=== PATIENT | female | born 1965 | race Caucasian/White ===

== ENCOUNTER 2017-10-18 06:45 | Day surgery (SDC) | payer MEDICARE, OTHER ==
[~2017-10-18] VITALS: Ht 165.1 cm; Wt 63.5 kg
[~2017-10-18 06:45] MED LIST: ASPIRIN325 MG PO; BIOTIN2500 MCG PO; CRANBERRY250 MG PO; FLAX OIL1000 MG PO; GARLIC1000 MG PO; IBUPROFEN200 M1 PO; LIPITOR20 MG PO; MAGNESIUM200 MG PO; MELATIN3 MG PO; POTASSIUM99 M1 PO; VIACTIV SOFT C1 EACH PO; VITAMIN C500 M1 PO
[2017-10-18] MEDS ORDERED: BAYER BACK & B1 EACH PO (07:11)
[2017-10-18] MEDS ORDERED: HYDROCODON-ACE1 EA11 PO (09:57)
--- NOTE | 2017-10-18 10:00 | NUR ---
10/18/17 Idania Crenshaw 0954 PT ARRIVED TO PACU RESP EVEN AND UNLABORED. 0959 PT O2 REMOVED. PT DENIES NAUSEA AND PAIN.
[2017-10-18] MEDS ORDERED: NORCO 7.5-3251 EACH PO (10:20)
--- NOTE | 2017-10-18 10:48 | NUR ---
PT ARRIVES TO DS RM 10 FROM PACU AWKAE AND ALERT. PT DENIES ANY PAIN, STATING RIGHT LEG IS "COMPLETELY NUMB." PT DENIES N/V AND TOLERATES PO WELL. ICED WATER AND JELLO PROVIDED. SCD ON LEFT LEG. BOOT IN PLACE WITH ICE, RIGHT LEG ELEVATED. SPOUSE IN ROOM AT BEDSIDE. CALL LIGHT TO PT LEFT.
--- NOTE | 2017-10-18 11:30 | NUR ---
PT RESTING IN BED WATCHING TV. SPOUSE SLEEPING IN CHAIR AT BEDSIDE. PT DENIES ANY N/V AND ACCEPTS SOUP AND CRACKERS. PT PAIN 0/10 WITH RIGHT LEG STILL NUMB. PT PROVIDED WARM BLANKET. DC CRITERIA EXPLAINED TO PT.
--- NOTE | 2017-10-18 12:14 | NUR ---
DYLON 1150: PT WOULD LIKE TO GET UP ON BEDSIDE COMMODE. SHE IS ABLE TO URINATE QS. SHE INDICATES THAT SHE WOULD LIKE TO GO HOME AT THIS TIME. SHE IS INSTRUCTED ON BEST HOW TO DRESS HERSELF.
--- NOTE | 2017-10-18 12:15 | NUR ---
1200: DC INSTRUCTIONS ARE VERBALLY GIVEN. PT VERBALIZES UNDERSTANDING. SHE IS TAKEN TO VEHICLE IN A WHEELCHAIR. SHE IS ABLE TO TRANSFER HERSELF FROM WHEELCHAIR TO VEHICLE.
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
--- NOTE | 2017-10-19 08:28 | OR ---
[facility] [address] [place], [place] [address] Signed DATE OF OPERATION: 10/18/2017 SURGEON: Fab Cardenas MD PREOPERATIVE DIAGNOSIS: Displaced right 5th metatarsal fracture. POSTOPERATIVE DIAGNOSIS: Displaced right 5th metatarsal fracture. PROCEDURE PERFORMED: Open reduction and internal fixation right 5th metatarsal fracture. RN DOCUMENT IMPROVEMENT: Oliva Lazar PA-C. Oliva was present in critical positioning, retraction, and splint application. ANESTHESIA: General. TOURNIQUET TIME: 32 minutes. IMPLANTS: Eight hole, 2.0 T-plate with screws. BRIEF HISTORY: Long is a 52-year-old female, who suffered a ground-level fall with a long spiral fracture of 5th metatarsal was displaced. Risks and benefits of operative treatment discussed with her and she elected to proceed. DESCRIPTION OF PROCEDURE: Once the consent was obtained, she was taken to the operating room. After adequate anesthesia, she was placed on operating table. All downside pressure points well padded and hip bump was placed. A well-padded proximal leg tourniquet was placed and the leg was prepped and draped in a standard sterile fashion and exsanguinated using Esmarch bandage. Tourniquet inflated to 250 mmHg. Standard dorsal lateral approach was taken through the skin and subcutaneous tissue and directly down on the metatarsal. Periosteum was elevated anteriorly and posteriorly. The fracture was easily identified. Electronically Signed By: FAB CARDENAS MD 10/19/17 0828 PATIENT NAME: LONG ROSAS OPERATIVE REPORT DATE OF : 69 REPORT #: [id number] PHYSICIAN: FAB CARDENAS MD PCP: JAMEL HERNÁNDEZ MD REPORT IS CONFIDENTIAL AND NOT TO BE RELEASED WITHOUT AUTHORIZATION [facility] [address] [place], [place] [address] Signed The fracture was distracted and cleaned of debris. It was then distracted and reduced and held with a clamp. A single 1.25 mm K-wire was then placed across the fracture site holding in position. The clamp was removed. The 2.0 T-plate was then fashioned to set on the condyle distally and cover the entire fracture. Once it was sufficiently bent, it was held in place with a single screw in the center. Image intensifier was brought in, position was adjusted. Remaining screw holes were all drilled and appropriate length screws were placed. Two screws were too long. I removed those and placed shorter screws. The final radiograph showed good reduction and good plate placement of screw lengths. The wound was closed again with antibiotic solution, closed with 3-0 Monocryl and andrew. Wound was dressed with Mepilex Ag dressing, ABD and Lucio wrap. She was placed back in a fracture boot, taken to recovery room in satisfactory condition. All sponge, needle, and instrument counts were correct. Fab Cardenas MD BA/SHAYY /[id number] Copies: ~ Electronically Signed By: FAB CARDENAS MD 10/19/17 0828 PATIENT NAME: LONG ROSAS ANN OPERATIVE REPORT DATE OF : 69 REPORT #: [id number] PHYSICIAN: FAB CARDENAS MD PCP: JAMEL HERNÁNDEZ MD REPORT IS CONFIDENTIAL AND NOT TO BE RELEASED WITHOUT AUTHORIZATION
== END 2017-10-18 12:06 | disposition home or self-care (01) ==
LOC: DS 06:45
PROVIDERS: Specialist
PROC: 0QSN04Z Reposition Right Metatarsal with Internal Fixation Device, Open Approach (ICD-10-PCS; principal; 2017-10-18 08:45)
DX: S92.351A Displaced fracture of fifth metatarsal bone, right foot, initial encounter for closed fracture (principal); Z79.52 Long term (current) use of systemic steroids; Z79.899 Other long term (current) drug therapy; W10.8XXA Fall (on) (from) other stairs and steps, initial encounter
CPT/HCPCS: 01480; 62322; 64445; 73630; 76942; C1713; J0690; J1100; J1885; J2250; J2405; J2704; J2765; J2795; J3010; J7120

== ENCOUNTER 2019-05-27 14:09 | Inpatient (IN) | payer MEDICARE, OTHER ==
[~2019-05-27] VITALS: Ht 165.1 cm; Wt 63.5 kg
[~2019-05-27 14:09] MED LIST changes: +BAYER BACK & B1 EACH PO; +HYDROCODON-ACE1 EA11 PO; +NORCO 7.5-3251 EACH PO
[2019-05-27] MEDS ORDERED: VITAMIN D2400 UNIT PO (14:24)
--- NOTE | 2019-05-27 17:38 | NUR ---
05/27/19 1738 Lashay,Idania 1727 PT ARRIVED TO PACU, PT WAKES EASILY TO VERBAL STIMULI AND DENIES NAUSEA AND PAIN. VSS. PT SHIVERING AND WARM BLACKETS GIVEN. PT FALLS BACK TO SLEEP WITH SNORING NOTED. 1735 PT ARM IN PILLOW CASE SLING PER MD ORDER.
--- NOTE | 2019-05-27 18:26 | NUR ---
ARRIVED TO ROOM 114 WITH JAYY MCINTOSH AT 1815. ALERT AND ORIENTED. AWAKE AND RESPONSIVE. VSS. RIGHT ARM ELEVATED.
--- NOTE | 2019-05-27 19:10 | NUR ---
SHIFT REPORT RECIEVED FROM TYSON MCINTOSH. PT RESTING IN BED WATCHING TV. ICE WATER PROVIDED. ARM ELEVATED WITH ICE PACKS. NO OTHER NEEDS AT THIS TIME. CALL LIGHT IN REACH.
--- NOTE | 2019-05-27 19:30 | NUR ---
VITALS DONE AND CHARTED. PT NEEDS NOTHING AT THIS TIME. BEDSIDE TABLE AND CALL LIGHT IN REACH.
--- NOTE | 2019-05-27 20:36 | NUR ---
ASSESSMENT COMPLETED. SCDs, OLE HOSE AND HEELS ON. BANDAGING CDI. CMS INTACT IN RIGHT HAND. SCHEDULED MEDS PROVIDED. PAIN 5/, PT DENIES NEED FOR ADDITIONAL PAIN MANAGEMENT. PT ORIENTED X4. PT UP TO BR AND BACK TO BED, SBA. NO OTHER NEEDS AT THIS TIME. CALL LIGHT IN REACH.
--- NOTE | 2019-05-27 20:42 | NUR ---
VITALS DONE AND CHARTED. CHICKEN NOODLE SOUP GIVEN PER PT REQUEST. BEDSIDE TABLE AND CALL LIGHT IN REACH.
--- NOTE | 2019-05-27 20:55 | NUR ---
PUT ON TEDS AND HEEL PROTECTORS.
--- NOTE | 2019-05-27 21:49 | NUR ---
VITALS DONE AND CHARTED. PT NEEDS NOTHING AT THIS TIME.
--- NOTE | 2019-05-27 22:16 | NUR ---
PT PAIN 8/10 IN RIGHT HAND/ARM. SCHEDULED PAIN MED AND ICE PACK PROVIDED. CMS INTACT IN RIGHT HAND. NO OTHER NEEDS AT THIS TIME. CALL LIGHT IN REACH.
--- NOTE | 2019-05-27 22:56 | NUR ---
PT STATES PAIN IN ARM/HAND STILL 10/01. PRN PAIN MED PROVIDED. EDUCATION AND ICARE CARD PROVIDED AT REQUEST. NO OTHER NEEDS. CALL LIGHT IN REACH.
--- NOTE | 2019-05-28 00:55 | NUR ---
PT RESTING IN BED, EYES CLOSED. RR EVEN AND UNLABORED. RUE ELEVATED WITH COLD PACK. CALL LIGHT IN REACH.
--- NOTE | 2019-05-28 01:54 | NUR ---
VITALS AND I&OS DONE AND CHARTED. BEDSIDE TABLE AND CALL LIGHT IN REACH. PT NEEDS NOTHING AT THIS TIME.
--- NOTE | 2019-05-28 02:50 | NUR ---
PT RESTING IN BED, EYES CLOSED. RR EVEN, UNLABORED. CALL LIGHT IN REACH.
--- NOTE | 2019-05-28 04:02 | NUR ---
SCHEDULE MED PROVIDED. ASSESSMENT COMPLETED. CMS INTACT IN RUE. PAIN 5/10, ICE PACK PROVIDED. ICE WATER PROVIDED. SCDs, OLE HOSE, HEEL PROTECTORS ON. RUE ELEVATED. PT UP TO BR AND BACK TO BED, SBA. NO OTHER NEEDS AT THIS TIME. CALL LIGHT IN REACH.
--- NOTE | 2019-05-28 06:40 | NUR ---
SCHEDULED MED PROVIDED. PT UP TO BR AND BACK TO BED, SBA. ICE PACK PROVIDED. VS AND I&O COMPLETED BY TISH PAN. NO OTHER NEEDS AT THIS TIME. CALL LIGHT IN REACH.
--- NOTE | 2019-05-28 10:09 | OR ---
[facility] [address], [place] [address] Signed DATE OF OPERATION: 05/27/2019 SURGEON: Fab Cardenas MD PREOPERATIVE DIAGNOSIS: Right hand crush injury. POSTOPERATIVE DIAGNOSIS: Right hand crush injury. PROCEDURE PERFORMED: 1. Irrigation and debridement of skin, subcutaneous tissue, and muscle. Three lacerations, one 2 cm long, one 9 cm long, one 7 cm long. 2. Carpal tunnel release, open. LEAD SOLUTIONS ARCHITECT: None. ANESTHESIA: General. BLOOD LOSS: 150 mL. TOURNIQUET TIME: Zero. BRIEF HISTORY: Long is a 53-year-old female, who was at home with her family and they were splitting firewood using the hydraulic wood splitter. Her hand got caught between the log and the splitter and crushed. She had multiple lacerations with extrusion of muscle along the thumb. She presented to the emergency department, where I evaluated her and found numbness and tingling along the thumb, but no other. By the time she got to the operating room, however, she was complaining of numbness in the entire median distribution with progressive swelling in the volar wrist. I prompted just to go ahead and proceed with a carpal tunnel release as well. The risks, benefits, and alternatives of surgery were discussed with her prior to going to the operating room and she elected to proceed. DESCRIPTION OF PROCEDURE: Electronically Signed By: FAB CARDENAS MD 05/28/19 1009 PATIENT NAME: LONG ROSAS ANN OPERATIVE REPORT DATE OF : 69 REPORT #: [id number] PHYSICIAN: FAB CARDENAS MD PCP: JAMEL HERNÁNDEZ MD REPORT IS CONFIDENTIAL AND NOT TO BE RELEASED WITHOUT AUTHORIZATION [facility] [address] [place], [place] [address] Signed Once consent was obtained, she was taken to the operating room. After adequate anesthesia, she was placed on the operating table. All downside pressure points were well padded. Adequate general anesthesia was then established and the dressing from the ER was then removed. The arm was then prepped and draped in a standard sterile fashion. All 3 wounds were then copiously irrigated using normal saline. The ulnar wound which is 9 cm long was then investigated. There was deep subcutaneous dissection, but the tendons were intact. There were no foreign bodies. The thenar and web space wound on the opposite side was then inspected. There was a large chunk of muscle that was the abductor that was avulsed and extruded out the wound. The wound was again clean and showed no foreign bodies. At this point, we elected to go ahead and do the carpal tunnel release to remove pressure from the median nerve. The carpal tunnel was approached through standard volar approach through a longitudinal incision, carried through skin subcutaneous tissue. The palmaris longus was identified and retracted. There was extensive subcutaneous edema as well as edema in the nerve below the transverse carpal ligament. The transverse carpal ligament was identified and was released to its full extent. The nerve was inspected. There was again extensive edema and some bleeding in the carpal tunnel. This was copiously washed out and packed with a saline soaked sponge as we approached the thenar muscle extrusion. We then made a T-incision off the thenar laceration and extended that into the mid palm obliquely. This was carried through skin and subcutaneous tissue. We were then able to clean off the muscle and reduce it back into its natural position. It was then sutured into position using 3-0 Monocryl as best we could in the soft tissue. Care was taken to avoid the nervous structures, the vascular structures, and the tendinous structures. Once this was accomplished, it was again copiously irrigated. The incision was then closed using 3-0 nylon as was the laceration. This closed relatively easily. The carpal tunnel incision was washed out using dilute iodine and was closed using 3-0 nylon. The lateral incision, however, was too swollen and too tense to close. I placed a couple of stay sutures in the midportion and 2 sutures at each end. It was then packed with a saline soaked sponge after we had irrigated it with both iodine and saline. Once this was completed, we then placed her in a bulky hand dressing using multiple Kerlix and an Lcuio wrap. She was elevated into a sling, taken to recovery room in satisfactory condition. All sponge, needle, and instrument counts were correct. Fab Cardenas MD BA/MODL /[id number] Electronically Signed By: FAB CARDENAS MD 05/28/19 1009 PATIENT NAME: LONG ROSAS OPERATIVE REPORT DATE OF : 69 REPORT #: [id number] PHYSICIAN: FAB CARDENAS MD PCP: JAEML HERNÁNDEZ MD REPORT IS CONFIDENTIAL AND NOT TO BE RELEASED WITHOUT AUTHORIZATION [address] [address] Signed Copies: ~ Electronically Signed By: FAB CARDENAS MD 05/28/19 1009 PATIENT NAME: LONG ROSAS ANN OPERATIVE REPORT DATE OF : 69 REPORT #: [id number] PHYSICIAN: FAB CARDENAS MD PCP: JAMEL HERNÁNDEZ MD REPORT IS CONFIDENTIAL AND NOT TO BE RELEASED WITHOUT AUTHORIZATION
--- NOTE | 2019-05-28 10:20 | NUR ---
Pt in bed at this time, sling in place for elevation to RUE, ice in use as well. Pt recently medicated with Oxycodone for pain. Pt denies needs. Personal supplies and call light within reach.
--- NOTE | 2019-05-28 13:02 | EKG ---
[facility] [address] [facility] [place], [place] [address] Signed Normal sinus rhythm Normal ECG No previous ECGs available Confirmed by ELADIO CAMPBELL DO ([id number]) on 05/28/2019 1:02:10 PM Electronically Signed By: ELADIO CAMPBELL DO 05/28/19 1302 PATIENT NAME: LONG ROSAS ANN Electrocardiogram DATE OF : 69 PHYSICIAN: ELADIO CAMPBELL DO REPORT #: [id number] REPORT IS CONFIDENTIAL AND NOT TO BE RELEASED WITHOUT AUTHORIZATION
--- NOTE | 2019-05-28 14:42 | NUR ---
Pt sitting up in bed at this time, respirations even and non labored. Pt's right arm elevated, cms intact. Pt reports her pain is tolerable. No needs at this time. Personal supplies and call light within reach.
--- NOTE | 2019-05-28 17:33 | NUR ---
Oxycodone 5mg po admin for 5/10 right arm pain.
--- NOTE | 2019-05-28 18:14 | NUR ---
PT CONTINUES TO HAVE RUE ELEVATED WITH ICE. PT DOING WELL. PERSONAL SUPPLIES AND CALL LIGHT WITHIN REACH.
--- NOTE | 2019-05-28 19:38 | NUR ---
Pt sits up in her bed. alert, oriented, involbed in report. Scheduled for th surgery in the morning. Py informed about NPO at modnight. Would like to get snack and pain medication before sleep. Will bw back to assess,
--- NOTE | 2019-05-28 19:42 | NUR ---
pt right arm has a dressing. Elevated on the pillow.
--- NOTE | 2019-05-28 19:42 | NUR ---
SANDWICH BOX PROVIDED TO pt. pt AWAKE, TALKING ON PHONE. NO ADDITIONAL REQUESTS. CALL LIGHT IN REACH.
--- NOTE | 2019-05-28 21:28 | NUR ---
PHONE CALL TO . NO IVF ORDERS PRE OP. NO NEW ORDERS OBTAINED.
--- NOTE | 2019-05-28 21:54 | NUR ---
PT ALERT, ORIENTED, VOIDED AND HAD BM. ASSESSMENT IS DONE. SENSATION INRIGHT ARM IS PRESENT, NO NUMBNESS OR TINGLING, PULSE 1+, CAP REFILL <3 SEC. PT REPORTED PAIN 8/, SEE MAR FOR MEDICATION ADMINISTRATION. PT BACK TO BED, NO NEEDS AT THE MOMENT. CALL LIGHT IN REACH.
--- NOTE | 2019-05-28 22:39 | NUR ---
PT REQUESTED WARM BLANKET. TURNED UP HIT IN THE ROOM. REASSESSED PAIN, PT STATED IT IS 4/10. CALL LIGHT IN REACH. NO NEEDS AT THE MOMENT.
--- NOTE | 2019-05-29 00:14 | NUR ---
pt is awake, stated her pain is 4/10, it is tolerable, denied offered prn pain medication. No needs at the moment.
--- NOTE | 2019-05-29 03:15 | NUR ---
PT WENT TO THE BATHROOM, VOIDED 600 ML WIHTOUT DIFFICULTIES.REPORTED PAIN 8/, SEE MAR FOR MEDCIATIONS ADMINISTRATION. SOME NUBNESS IN THE FINGERS REPORTED. CUPREFILL <3 SEC. USED IS. DONE WITH ASSESSMNET.
--- NOTE | 2019-05-29 04:53 | NUR ---
PT ALERT, ORIENTED, COOPERATIVE. ASKED FOR THE SNACK AT THE BEGINNING OF THE SHIFT, GOOD APPETITE. VOIDED WITHOUT DIFFICULTIES. NPO AFTER MIDNIGHT. PT REPORTED PAIN 8/10 TWICE DURING THIS SHIFT. SEE MAR FOR MEDICATIONS ADMINISTRATIONS. PT HAS UNSTEADY GAIT, CALLS APPROPRIATE FOR HELP. LUNG SOUND DIMINISHED AT THE LOW BASES. PT USED IS. SPO2 96% ON RA. GENERALIZED EDEMA IN AFFECTED HAND. SENSATION IS PRESENT, PULSE 2+, CAP REFILL <3 SEC. VSS.
--- NOTE | 2019-05-29 07:41 | NUR ---
Pt sitting in bed awake, hob elevated. Right arm elevated with ice in use. Pt able to to move fingers freely, sensation intact, cap refill less than three seconds. Fingers to right hand have scant edema noted. Pt recently medicated with dilaudid.
--- NOTE | 2019-05-29 09:08 | NUR ---
PT OFF FLOOR IN SURGERY DEPT AT THIS TIME.
--- NOTE | 2019-05-29 11:39 | NUR ---
05/29/19 1139 Idania Metz 1121 REPORT TO MARLENA MCINTOSH.
--- NOTE | 2019-05-29 11:44 | NUR ---
PT BACK FROM SURGERY. ARRIVED ALERT & ORIENTED X 3. VS STABLE AT THIS TIME. CPOX INTACT, 97% ON RA. JELLO AND WATER PROVIDED. PT TOLERATING WELL. IN BED WITH SCDS, OLE HOSE, AND HEEL PADS IN PLACE. RUE ELEVATED ON PILLOW ABOVE HEART LEVEL, ICE IN PLACE, DRESSING CDI TO RT WRIST AND HAND. CAN FEEL FINGERS BUT CAN'T MOVE AT THIS TIME. CAP REFILL < 3 SEC. FINGERS WARM AND PINK TO TOUCH. RT SHOULDER X RAY COMPLETED. REPORTS 10/10 PAIN IN THE RT HAND. ORDERING LUNCH AT THIS TIME AND FINISHING JELLO.
--- NOTE | 2019-05-29 12:31 | NUR ---
PT SITTING UP IN BED EATING LUNCH. RIGHT ARM ELEVATED ABOVE HEART LEVEL; CMS INTACT. DRESSING CDI. PT TOLERATING ICE WELL OVER INCISION. PT REPORTS IMPROVED PAIN LEVEL TO RIGHT HAND. VS STABLE. PT DENIES NEEDS TO VOID. PERSONAL SUPPLIES AND CALL LIGHT WITHIN REACH.
[2019-05-29] MEDS ORDERED: VIACTIV 650 MG1 EACH PO (13:22)
--- NOTE | 2019-05-29 13:25 | NUR ---
MED REC COMPLETE
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
--- NOTE | 2019-05-29 13:43 | NUR ---
PT DOING WELL AT THIS TIME, A&OX4. PT REPORTS TOLERABLE PAIN IN RUE. DRESSING TO HAND/ARM IS CDI; CAP REFILL LESS THAN THREE SECONDS, PULSE INTACT AND STRONG, PT REPORTS SENSATION TOUCH WITH SLIGHT NUMBNESS TO RIGHT PINKY. PT TOLERATED LUNCH WELL. CPOX INTACT, SAT LEVEL 96% ON RA. RIGHT ARM ELEVATED WITH ICE. NO NEEDS AT THIS TIME. PERSONAL SUPPLIES AND CALL LIGHT WITHIN REACH.
--- NOTE | 2019-05-29 14:32 | NUR ---
PT RESTING IN BED ALMOST ASLEEP. SAO2 96% ON RA. RT ARM ELEVATED ABOVE THE HEART. NO PAIN OR NAUSEA. STATES THE PILL MADE HER COMFORTABLE. CALL LIGHT WITIN REACH. DRESSING CDI, CAN'T MOVE FINGERS BUT CAN FEEL ME TOUCHING THEM.
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
--- NOTE | 2019-05-29 15:32 | NUR ---
RIGHT UPPER ARM ELEVATED ON PILLOW; ICE IN USE. PT DOING WELL, EATING A SNACK. PAIN LEVEL IN RUE IS REPORTED TOLERABLE. DRESSING TO RIGHT HAND IS CDI. CMS INTACT TO RUE. NO NEEDS AT THIS TIME. PT RECENTLY VOIDED. PERSONAL SUPPLIES AND CALL LIGHT WITHIN REACH. NO NEEDS AT THIS TIME.
--- NOTE | 2019-05-29 17:04 | NUR ---
GAVE SCHEDULED TORADOL. PT REPORTING PAIN AT 710. SUPPLIED FRESH ICE BAGS AND PT IS ELEVATING HAND WITH ICE. SAID SHE CAN NOW MOVE HER THUMB BUT NOT HER OTHER FINGERS. UP TO BATHROOM, VOIDED. PT IS NOW BACK IN BED OLE HOSE, SCD'S, AND FOOT PADS IN PLACE. NO FURTHER NEEDS AT THIS TIME. CALL LIGHT IS WITHIN REACH.
--- NOTE | 2019-05-29 18:56 | NUR ---
PATIENT BACK TO SITTING ON EDGE OF BED FROM BATHROOM, SBA. PATIENT COMLAINING OF STOMACH HURTING AND NOT BEING ABLE TO HAVE BOWEL MOVEMENT, RN NOTIFIED. CALL LIGHT IN REACH. NO FURTHER NEEDS AT THIS TIME.
--- NOTE | 2019-05-29 19:20 | NUR ---
received report from morning shift. pt alert, oriented. had small bm, voided without difficulties. pt denied pain at the moment. call light in reach, bed in low postion. scd on.
--- NOTE | 2019-05-29 20:33 | NUR ---
PT ALERT,ORIENTED, REPORTED PAIN 10/10. SEE MAR FOR MEDICATION ADMINISTRATION. IV IS PATENT, DRESSING INTACT, FLUSHED WITH 10 ML OF NS WIHTOUT DIFFICULTIES. PT VOIDED AND HAD LIQUID STOOL. DONE WITH ASSESSEMENT.
--- NOTE | 2019-05-29 22:32 | NUR ---
REASSESS PT FOR PAIN. SHE STATED IT IS 4/10 AND TOLARABLE. WARMED BLANKET WAS OFFERED FOR COMFORT. NO NEEDS AT THE MOMENT.
--- NOTE | 2019-05-30 02:14 | NUR ---
PT CYR TO THE BATHROOM. VOIDED. REPORTED PAIN 10/10 IN HER RIGHT ARM AND SHOULDER. SEE MAR FOR MEDICATION ADMINISTRATION. REFRESHED ICE IN ICEPACKS, FRESH WATER OFFERED. DONE WITH ASSESSMENT, PT CAN MOVE HER FINGERS BESIDE OF PINKY. SENSATION AND PULSE ARE PRESENT. NO NEEDS AT THE MOMENT. WILL BE BACK TO REASSESS FOR PAIN.
--- NOTE | 2019-05-30 03:54 | NUR ---
pt easy wakes up to voice. reported pain 8/10. Scheduled medication was administrated. Able to move her fingers, sensation and pulse is present in affected arm. No needs at the moment. Will be back to reassess for pain. call light in reach.
--- NOTE | 2019-05-30 05:58 | NUR ---
PT EASY WAKES UP TO VOICE. DENIED PAIN AT THE MOMENT, ALERT, COOPERATIVE. NO NEEDS AT THE MOMENT. CALL LIGHT IN REACH,
--- NOTE | 2019-05-30 06:06 | NUR ---
HELPED PT TO THE BATHROOM. VOIDED. DENIED PAIN, VSS. SENSATION PRESENT IN ALL FINGERS. CAP REFILL <3, NO TINGLING, NO NUBNESS AT THE MOMENT. BACK TO BED. NO NEEDS AT THE MOMENT. CALL LIGHT IN REACH.
--- NOTE | 2019-05-30 06:20 | NUR ---
PT HAD LARGE LIQUID BM. VOIDED WITHOUT DIFFICULTIES. GAIT IS MORE STEADY. DENIED DIZZINESS OR LIGHTHEADENESS. REPORTED PAIN 10/10 TWICE DURING THIS SHIFT. SEE MAR FOR MEDICATIONS ADMINISTRATION. IN THE MORNING NO NUMBNESS, NO TINGLING, ABLE TO MOVE ALL FINGERS ON INJURED ARM. SENSATION AND PULSE PRESENT.
--- NOTE | 2019-05-30 07:32 | NUR ---
REPORT RECIEVED FROM ARNALDO GONZALEZ. PT STATES SHE IS FEELING PRETTY GOOD, CAN WIGGLE ALL FINGERS BUT THE PINKY, STILL NUMB.
--- NOTE | 2019-05-30 07:57 | OR ---
[facility] [address] [place], [place] [address] Signed DATE OF OPERATION: 05/29/2019 SURGEON: Fab Cardenas MD PREOPERATIVE DIAGNOSIS: Right hand crush injury. POSTOPERATIVE DIAGNOSIS: Right hand crush injury. PROCEDURE PERFORMED: Irrigation and debridement, delayed primary closure of ulnar wound, 9 cm. LVN LPN: None. ANESTHESIA: General. BLOOD LOSS: Minimal. TOURNIQUET: No tourniquet. BRIEF HISTORY: Long is a 53-year-old female, who had her hand caught in a wood splitter on Wednesday afternoon. She was seen in the emergency room, taken emergently to the operating room, where multiple wounds were debrided and the mid palmar region was decompressed with an open carpal tunnel to relieve her carpal tunnel symptoms. The thenar wound and the carpal tunnel wound were closed; however, we could not get the ulnar wound closed and it was packed open and a bulky hand dressing was applied. She was brought back to the operating room 48 hours later for I and D and possible delayed primary closure. Risks, benefits, and alternatives were discussed with her and she understands and wished to proceed. PROCEDURE IN DETAIL: After consent was obtained, she was taken to the operating room. After adequate anesthesia, she was placed on operating room table. All downside pressure points well padded. The arm was then prepped and draped in a standard sterile fashion and the hand Electronically Signed By: FAB CARDENAS MD 05/30/19 0757 PATIENT NAME: LONG ROSAS OPERATIVE REPORT DATE OF : 69 REPORT #: [id number] PHYSICIAN: FAB CARDENAS MD PCP: JAMEL HERNÁNDEZ MD REPORT IS CONFIDENTIAL AND NOT TO BE RELEASED WITHOUT AUTHORIZATION [address] [address] Signed was inspected. All 3 other wounds that were closed were in good shape. There was a little duskiness to one of the flaps. The ulnar wound was clean and dry. The wound was washed out using dilute Betadine solution followed by normal saline. Once this was accomplished, it was closed using interrupted 3-0 nylon. Minimal skin tension was noted. The hand was then cleansed, placed back into a bulky hand dressing over Xeroform. The patient was taken to recovery room in satisfactory condition. All sponge, needle, and instrument counts were correct. Fab Cardenas MD BA/MODL /[id number] Copies: ~ Electronically Signed By: FAB CARDENAS MD 05/30/19 0757 PATIENT NAME: LONG ROSAS ANN OPERATIVE REPORT DATE OF : 69 REPORT #: [id number] PHYSICIAN: FAB CARDENAS MD PCP: JAMEL HERNÁNDEZ MD REPORT IS CONFIDENTIAL AND NOT TO BE RELEASED WITHOUT AUTHORIZATION
--- NOTE | 2019-05-30 08:16 | NUR ---
SEE MORNING ASSESSMENT. PT COMPLAINING OF STOMACH PAIN AT THIS TIME. GAVE ZOFRAN SHE REPORTS NO RELIEF YET. HELD SENNA AND MIRALAX. UP TO THE RESTROOM AND BACK TO BED. PT TALKING WITH DR. DUARTE NOW. NO FURTHER NEEDS AT THIS TIME. CALL LIGHT WITHIN REACH.
[2019-05-30] MEDS ORDERED: OXYCODONE HCL5 MG PO (08:31)
[2019-05-30] MEDS ORDERED: GABAPENTIN600 MG PO (08:31)
[2019-05-30] MEDS ORDERED: SENNA LAX8.6 MG PO (08:32)
== END 2019-05-30 10:40 | disposition home or self-care (01) | DRG 906 ==
LOC: ED 14:09 → MS 14:10 → ED 14:10 → MS 15:41
PROVIDERS: ADMIT Specialist
PROC: 01N50ZZ Release Median Nerve, Open Approach (ICD-10-PCS; principal; 2019-05-27 15:30)
PROC: 0KQC0ZZ Repair Right Hand Muscle, Open Approach (ICD-10-PCS; 2019-05-27 15:30)
PROC: 0HQFXZZ Repair Right Hand Skin, External Approach (ICD-10-PCS; 2019-05-29)
DX: S67.21XA Crushing injury of right hand, initial encounter (principal); S61.411A Laceration without foreign body of right hand, initial encounter; W31.89XA Contact with other specified machinery, initial encounter; Z87.891 Personal history of nicotine dependence; Z79.899 Other long term (current) drug therapy; Z79.1 Long term (current) use of non-steroidal anti-inflammatories (NSAID); Z88.2 Allergy status to sulfonamides; Z88.6 Allergy status to analgesic agent; Z91.040 Latex allergy status
CPT/HCPCS: 01810; 73030; 73130; 80048; 85025; 90471; 90715; 93005; 93010; 96374; 96375; 99284-25; J0330; J0690; J1170; J1200; J1885; J2001; J2405; J2704; J3010

== ENCOUNTER 2021-07-13 15:42 | Emergency (ER) | payer MEDICARE, OTHER ==
[~2021-07-13] VITALS: Ht 165.1 cm; Wt 63.5 kg
[~2021-07-13 15:42] MED LIST changes: +GABAPENTIN600 MG PO; +OXYCODONE HCL5 MG PO; +SENNA LAX8.6 MG PO; +VIACTIV 650 MG1 EACH PO; +VITAMIN D2400 UNIT PO
[2021-07-13] MEDS ORDERED: HYDROCODON-ACE1 EA10 PO (18:56)
== END 2021-07-13 19:10 | disposition home or self-care (01) ==
LOC: ED 15:42
DX: R07.89 Other chest pain (principal); N93.9 Abnormal uterine and vaginal bleeding, unspecified; Z87.891 Personal history of nicotine dependence; Z88.2 Allergy status to sulfonamides; Z91.040 Latex allergy status; Z88.8 Allergy status to other drugs, medicaments and biological substances; Z79.899 Other long term (current) drug therapy
CPT/HCPCS: 71101; 81001; 99285-25; A9270

== ENCOUNTER 2023-02-09 07:34 | Day surgery (SDC) | payer MEDICARE, OTHER ==
[~2023-02-09] VITALS: Ht 165.1 cm; Wt 71.3 kg
[~2023-02-09 07:34] MED LIST changes: +HYDROCODON-ACE1 EA10 PO
[2023-02-09 07:51] VITALS: BP 118/74
[2023-02-09] MEDS ORDERED: ALEVE220 MG PO (08:01)
[2023-02-09] MEDS ORDERED: OMEPRAZOLE20 MG PO (08:04)
--- NOTE | 2023-02-09 09:00 | NUR ---
02/09/23 0900 Luda Colon PATIENT IS AWAKE AND TALKING WITH ME UPON ARRIVAL TO PACU. SHE FALLS QUICKLY TO RESTING WITH HER EYES CLOSED. SNORING RESPIRATIONS HEARD.
[2023-02-09 09:14] VITALS: BP 119/75
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
--- NOTE | 2023-02-11 17:01 | PATH ---
[facility] [address] [place], [place] [address] Signed SPECIMEN(S): A ANTRUM/PYLORUS BIOPSY SPECIMEN SOURCE: A. ANTRUM/PYLORUS BIOPSY CLINICAL HISTORY: EGD. Family history of stomach cancer. FINAL PATHOLOGIC DIAGNOSIS: Antrum/pylorus biopsy: - Benign gastric type mucosa with focal slight chronic inflammation. - A Helicobacter pylori immunostain is pending and will be reported by addendum. JVR:jennifer MICROSCOPIC EXAMINATION: Histologic sections of all submitted blocks are examined by light microscopy. These findings, together with the gross examination, support the pathologic diagnosis. JVR:dks GROSS DESCRIPTION: The specimen, labeled and designated "Har[place], biopsy, antrum/pylorus biopsy," is received in formalin and consists of two fragments of soft corea tissue that are up to 0.3 cm in greatest dimension. Entirely submitted in (A1). TW (under the direct supervision of a pathologist) The Gross Description was prepared using a voice recognition system. The report was reviewed for accuracy; however, sound-alike word errors, addition and/or deletions may occur. If there is any question about this report, please contact Client Services. ADDITIONAL NOTES: Immunohistochemical and/or in situ hybridization studies were performed on this case with the appropriate positive controls that react as expected. This test was developed and its performance characteristics determined by [facility]. It has not been cleared or approved by the U.S. Food and Drug Administration. The FDA has determined that such clearance or approval is not necessary. This test is used for clinical purposes. It should not be regarded as investigational or for research. [facility] is certified under the PATIENT NAME: LONG ROSAS PATHOLOGY DATE OF : 69 REPORT #: [id number] PHYSICIAN: [facility] PCP: JAMEL HERNÁNDEZ MD REPORT IS CONFIDENTIAL AND NOT TO BE RELEASED WITHOUT AUTHORIZATION [facility] [address] [place], [place] [address], [place] [address] Signed Clinical Laboratory Improvement Amendments of 1988 (CLIA) as qualified to perform high complexity clinical laboratory testing. This assay has not been validated for specimens that have been decalcified. PERFORMING LABORATORY: Technical component was performed by [facility], [address] [place] [address] (CLIA# [id number]). Professional interpretation was performed by [facility], [address] [place] [id number] (CLIA#: [id number]). Diagnostician: Jitendra Leigh MD Pathologist Electronically Signed 02/11/2023 Copies: ~ PATIENT NAME: LONG ROSAS PATHOLOGY DATE OF : 69 REPORT #: [id number] PHYSICIAN: [facility] PCP: JAMEL HERNÁNDEZ MD REPORT IS CONFIDENTIAL AND NOT TO BE RELEASED WITHOUT AUTHORIZATION
== END 2023-02-09 09:25 | disposition home or self-care (01) ==
LOC: OPS 07:34 → DS 07:39 → OPS 09:00 → DS 09:00 → OPS 09:25
PROVIDERS: ATTEND Colon & Rectal Surgery
PROC: 0DB78ZX Excision of Stomach, Pylorus, Via Natural or Artificial Opening Endoscopic, Diagnostic (ICD-10-PCS; principal; 2023-02-09 09:00)
DX: K29.70 Gastritis, unspecified, without bleeding (principal); K44.9 Diaphragmatic hernia without obstruction or gangrene; R13.10 Dysphagia, unspecified; K21.9 Gastro-esophageal reflux disease without esophagitis; E78.5 Hyperlipidemia, unspecified; Z88.2 Allergy status to sulfonamides
CPT/HCPCS: 36415; 87077; G0500; J2250; J3010; J7121

== ENCOUNTER 2024-01-13 19:14 | Emergency (ER) | payer OTHER, MEDICARE ==
[~2024-01-13] VITALS: Ht 165.1 cm; Wt 70.0 kg
[~2024-01-13 19:14] MED LIST changes: +ALEVE220 MG PO; +OMEPRAZOLE20 MG PO
[2024-01-13] MEDS ORDERED: AMOXICILLIN/CLAVULANATE K 875 MG TAB PO ONE (20:45)
[2024-01-13] MEDS ORDERED: AMOX TR-K CLV1 EAC1 PO (20:58)
[2024-01-13 21:09] VITALS: BP 153/95
== END 2024-01-13 21:09 | disposition home or self-care (01) ==
LOC: ED 19:14
DX: S66.921A Laceration of unspecified muscle, fascia and tendon at wrist and hand level, right hand, initial encounter (principal); S61.011A Laceration without foreign body of right thumb without damage to nail, initial encounter; M24.444 Recurrent dislocation, right finger; Z87.891 Personal history of nicotine dependence; Z88.2 Allergy status to sulfonamides; Z88.6 Allergy status to analgesic agent; Z91.040 Latex allergy status; Z79.899 Other long term (current) drug therapy; Z79.1 Long term (current) use of non-steroidal anti-inflammatories (NSAID); W26.8XXA Contact with other sharp object(s), not elsewhere classified, initial encounter
CPT/HCPCS: 12001; 73140; 99283

== ENCOUNTER 2024-09-18 20:23 | Emergency (ER) | payer MEDICARE, OTHER ==
[~2024-09-18] VITALS: Ht 167.6 cm; Wt 68.0 kg
[~2024-09-18 20:23] MED LIST changes: +AMOX TR-K CLV1 EAC1 PO
[2024-09-18] MEDS ORDERED: TETRACAINE HCL 0.5% 4 ML BTL OS ONE (20:45)
[2024-09-18] MEDS ORDERED: CIPROFLOXACIN 0.3% 5 ML HOME.PACK OPTH ONE (22:15)
[2024-09-18 22:20] VITALS: BP 133/68
== END 2024-09-18 22:20 | disposition home or self-care (01) ==
LOC: ED 20:23
DX: H01.005 Unspecified blepharitis left lower eyelid (principal); Z87.891 Personal history of nicotine dependence; Z88.2 Allergy status to sulfonamides; Z88.8 Allergy status to other drugs, medicaments and biological substances; Z91.040 Latex allergy status; Z79.899 Other long term (current) drug therapy
CPT/HCPCS: 99283